=== PATIENT | male | born 1985 | race Caucasian/White ===

== ENCOUNTER 2017-10-10 18:02 | Emergency (ER) | payer MEDICAID ==
[~2017-10-10] VITALS: Ht 190.5 cm; Wt 86.3 kg
[2017-10-10 18:04] VITALS: BP 138/82
[2017-10-10] MEDS ORDERED: DIPH,PERTUSS(ACELL),TET VAC/PF 0.5 ML IM-VACC ONE ×2 (19:00→19:02)
[2017-10-10] MEDS ORDERED: BACITRACIN ZINC OINT 500U/GM, 0.9 GM ONE (19:37)
== END 2017-10-10 19:58 | disposition home or self-care (01) ==
LOC: ED 19:20
DX: S42.444A Nondisplaced fracture (avulsion) of medial epicondyle of right humerus, initial encounter for closed fracture (principal); S50.311A Abrasion of right elbow, initial encounter; S00.81XA Abrasion of other part of head, initial encounter; Y04.0XXA Assault by unarmed brawl or fight, initial encounter; Y93.89 Activity, other specified; Y92.89 Other specified places as the place of occurrence of the external cause; Y99.8 Other external cause status
CPT/HCPCS: 29105; 90471; 90715